=== PATIENT | female | born 1940 | race Caucasian/White ===

== ENCOUNTER 2022-04-06 11:07 | Emergency (ER) | payer OTHER ==
[~2022-04-06] VITALS: Ht 147.3 cm; Wt 59.0 kg
[2022-04-06 11:19] VITALS: BP_SYST 156
[2022-04-06] MEDS ORDERED: ACETAMINOPHEN 500 MG TABLET PO ONE (11:45)
[2022-04-06] MEDS ORDERED: CYCLOBENZAPRINE HCL 10 MG TABLET (FLEXERIL) PO ONE (11:45)
[2022-04-06] MEDS ORDERED: KETOROLAC TROMETHAMINE 30 MG VIAL IM ONE (11:45)
[2022-04-06] MEDS ORDERED: LIDOCAINE PATCH 5% 1 EA TP ONE (11:45)
[2022-04-06] MEDS ORDERED: LIDO1ADH77 TP (13:37)
[2022-04-06 13:45] VITALS: BP_SYST 147
== END 2022-04-06 13:45 | disposition home or self-care (01) ==
LOC: SED 11:07
DX: M25.512 Pain in left shoulder (principal); M54.6 Pain in thoracic spine; Z79.899 Other long term (current) drug therapy
CPT/HCPCS: 99284; 71045; 72072; 73030; 96372; J1885